=== PATIENT | female | born 1940 | race Caucasian/White ===

== ENCOUNTER 2017-11-19 15:32 | Emergency (ER) | payer MEDICARE, BC, SELFPAY ==
[2017-11-19] VITALS (7 sets, daily range): BP systolic 105–135; BP diastolic 64–90; PULSE 70–112; RESP 13–24; TEMP 36.9; O2SAT 97–100; BMI 21.9
--- NOTE | 2017-11-19 15:55 | ED_ITS ---
HPI - Arrhythmia/Palpitations General Chief Complaint: Arrhythmia/Palpitations Stated Complaint: PALPITATIONS Time Seen by Provider: 11/19/17 15:53 Source: patient Mode of arrival: ambulatory Limitations: no limitations History of Present Illness HPI narrative: Patient is a 77-year-old female here for evaluation of palpitations. Patient states that she woke up this morning with the feeling like her heart was skipping beats and racing. She states she went to sleep last night feeling fine. She does have a history of cervical cancer. Is not currently receiving chemotherapy. Is not currently on blood thinners. Does take metoprolol 25 mg on a daily basis. Has had a history of atrial fibrillation in the past. Last episode was 2 months ago. She states that she went to the ER during this time and she was ?given pills ?and then discharged home afterwards when her heart rate was down. Has not had any symptoms since then. Currently denies any chest pain, lightheadedness, dizziness, shortness of breath, lower extremity swelling. Related Data Home Medications Medication Instructions Recorded Confirmed metoprolol succinate 1 tab PO DAILY 11/19/17 11/19/17 Allergies Allergy/AdvReac Type Severity Reaction Status Date / Time nitroglycerin AdvReac Fainting Verified 11/19/17 16:08 Review of Systems Constitutional Denies fatigue, Denies fever(s), Denies frequent falls and Denies headache(s) ENT Ears, Nose, Mouth, and Throat: Denies dizziness and Denies headache(s) Cardiovascular Denies chest pain, Denies chest pain at rest, Denies syncope, Reports rapid heart rate, Denies pedal edema, Reports irregular heart rhythm, Denies leg edema , Reports palpitations, Denies dyspnea and Denies dyspnea on exertion Respiratory Denies cough, Denies dyspnea and Denies dyspnea on exertion Gastrointestinal Gastrointestinal: Denies diarrhea, Denies nausea and Denies vomiting Genitourinary Denies dysuria Musculoskeletal Denies myalgias and Denies arthralgias Integumentary/Breasts Denies lesions and Denies rash Neurologic Denies behavioral changes, Denies dizziness, Denies syncope, Denies frequent falls and Denies headache(s) Psychiatric Denies behavioral changes Endocrine Denies fatigue and Reports palpitations Hematologic/Lymphatic Reports easy bleeding Allergic/Immunologic Denies urticaria [facility] Medical History Atrial fibrillation (Acute) Cervical cancer (Acute) Surgical History S/P cholecystectomy (Acute) Social History Smoking Status: Never smoker Exam Initial Vital Signs Initial Vital Signs: Vital Signs Temperature 98.4 F 11/19/17 16:01 Pulse Rate 112 H 11/19/17 16:01 Respiratory Rate 20 11/19/17 16:01 Blood Pressure 135/90 H 11/19/17 16:01 Pulse Oximetry 99 11/19/17 16:01 Const General: cooperative, healthy appearing, comfortable, well developed, well groomed and No acute distress Orientation: alert, awake and oriented x3 HENMT Head: normal to inspection and normocephalic Resp Effort & Inspection: normal respiratory effort Auscultation: clear to auscultation bilaterally Cardio Rate: tachycardic Rhythm: abnormal rhythm irregularly irregular Pulses: radial pulses present GI Inspection: non-distended Palpation: soft, No firm and No tender Skin Lesions: no lesions Rashes: no rashes Neuro General: alert, awake and oriented x3 Cognition: normal cognition Speech: speech normal Motor: muscle tone normal throughout Sensory Exam: no sensory deficits noted Extrem General: normal to inspection and capillary refill normal Psych Appearance: grossly normal and well kempt Scores CHADS-VASc Congestive heart failure: no Hypertension: no Age 75 years or older: yes Diabetes mellitus: no Stroke, TIA, or TE: no Vascular disease: no Age 65 to 74 years: no Sex category (female): Female CHADS-VASc Score: 3 Course Orders Ordered: ED Orders 11/19/17 15:55 B Type Natriuretic Peptide Stat Basic Metabolic Panel Stat Complete Blood Count AUTO DIFF Stat Troponin I Stat 11/19/17 15:56 EKG-12 Lead Stat 11/19/17 16:52 EKG-12 Lead Stat Discontinued Medications Diltiazem HCl (Cardizem) 15 mg IV NOW ONE Stop: 11/19/17 16:23 Last Admin: 11/19/17 16:38 Dose: 12.5 mg Metoprolol Tartrate (Lopressor) 25 mg PO NOW ONE Stop: 11/19/17 17:40 Last Admin: 11/19/17 17:52 Dose: 25 mg Vital Signs - 8 hr 11/19/17 16:01 11/19/17 16:38 11/19/17 17:00 Temperature 98.4 F Pulse Rate 112 H 110 H 70 Respiratory Rate 20 13 Blood Pressure 135/90 H 134/81 H Blood Pressure [Right Arm] 107/64 Pulse Oximetry 99 100 11/19/17 18:13 11/19/17 18:40 11/19/17 19:00 Temperature Pulse Rate 79 88 81 Respiratory Rate 19 20 24 Blood Pressure Blood Pressure [Right Arm] 121/69 H 105/66 107/82 H Pulse Oximetry 100 100 97 MDM - Arrhythmia/Palpitations Lab Data Attestation: I reviewed the patient's lab results. ECG Data Attestation: I personally reviewed and interpreted this ECG as follows: Prior ECG tracings: not available for review Interpretation: EKG time 2345 hr AFib Ventricular rate of 121 Normal QRS Normal QTC Nonspecific ST T wave changes EKG timed 5 await p.m. Atrial fibrillation Ventricular rate 82 Normal QRS Normal QTC No ST T wave changes MDM Narrative Medical decision making narrative: Patient refused a chest x-ray here in the emergency department stating that she has been ?radiated ?enough secondary to her history of cervical cancer. She denied chest pain or shortness of breath however was having palpitations. She states she did take her 25 mg of ER metoprolol this morning. She states she normally takes it at 1 o'clock in the afternoon. Her symptoms were present when she woke up this morning. She states she went to sleep last night without any symptoms. She is not currently on anticoagulation. She is a candidate for cardioversion however she declined the offer this. She was given Cardizem here in the emergency department which improved her rate however was still in atrial fibrillation. Her [id number] score is 3 which gives her a 3.2% per year risk of stroke. Offered admission to the hospital secondary to the fact that she is still in atrial fibrillation however she declined this. She is from [place] and is traveling back to [place] tomorrow. We had a long discussion regarding her risk of stroke and also the risk of bleeding from anticoagulation. The patient was very concerned about the risk of bleeding. We did discuss that a stroke could potentially be debilitating. After this long discussion the patient opted not to start anticoagulation. Stable in the emergency department. She was given another 25 mg of metoprolol. She was instructed to start taking 2 of her 25 mg metoprolol tomorrow and when she returns home to contact her medical research tech and her primary care doctor. She was given return precautions. She expressed understanding and agreement with plan. Patient was here in the emergency department for extended period of time secondary to the fact that the lab computer system ? went down ?they were unable to see orders that were ordered. The lab said to be reordered and then hand walked down. It took greater than 1.5 hr for the labs to be resulted. Patient's CBC was unremarkable. BNP was unremarkable. Troponin was negative. Chemistries were unremarkable. Discharge Plan Departure Patient Disposition: Home, Self-Care Clinical Impression: Atrial fibrillation Instructions: DI for Atrial Fibrillation Activity Restrictions/Additional Instructions: You were given diltiazem here in the emergency department which improved your heart rate. You were also given metoprolol. You're still in atrial fibrillation. Recommend that tomorrow you take 50 mg of your metoprolol instead of 25. When you return home call your medical research tech and her primary care doctor for a follow-up. Return to the emergency department sooner for any chest pain, dizziness, lightheadedness, shortness of breath, feeling like your symptoms. heart is racing, or any other concerning symptoms. You did opt not to start anticoagulation secondary to your concern for bleeding. This does put you at approximately 3-4% risk of developing a stroke over the next year. Talk with your medical research tech and your primary care doctor at home regarding this medication Prescriptions: No Action metoprolol succinate 25 mg tablet extended release 24 hr 1 tab PO DAILY RF: 0
--- NOTE | 2017-11-19 16:05 | PC.NURSE ---
Pt states laying down/resting helps with symptoms of the afib. She feels like her heart is going very fast, but this gets better intermittently when resting. It is worse with activity. She states she feels tired, since this has been going on since 0600 today.
[2017-11-19] MEDS: METOPROLOL 25 MG TABLET PO (17:52)
--- NOTE | 2017-11-19 20:07 | PC.NURSE ---
Updated pt that there was a delay in processing lab results due to an issue in the lab department. Provider made aware. Lab orders were sent manually down at approx 1730.
[2017-11-20 16:02] LABS: Add Manual Diff / Slide Review NO; Basophils Percent Auto 0.4 % (0-2); Eosinophils Percent Auto 0.6 % (2-4); Hematocrit 40.6 % (36-46); Hemoglobin 13.7 g/dL (12.0-16.0); Lymphocytes Percent Auto 32.7 % (25-40); Mean Corpuscular HGB Conc 33.9 % (30-36); Mean Corpuscular Hemoglobin 33.3 PG (26-34); Mean Corpuscular Volume 98.5 fL (80-100); Neutrophils Percent Auto 58.3 % (50-75); Platelet Count 243 X10^3/uL (150-400); Red Blood Cell Count 4.12 X10^6/uL (4.0-5.2); Red Cell Distribution Width 13.7 % (11.6-14.8); White Blood Cell Count 4.7 X10^3/uL (4.5-11.0)
[2017-11-20 16:03] LABS: Sodium 140 mmol/L (137-145); Troponin I < 0.012 ng/mL (0.01-0.034)
[2017-11-20 16:04] LABS: BUN Creatinine Ratio 28.3 (6-22); Blood Urea Nitrogen 17 mg/dL (7-17); Calcium 9.8 mg/dL (8.4-10.2); Carbon Dioxide 29 mmol/L (22-32); Chloride 103 mmol/L (98-107); Estimated Glomerular Filt Rate > 60.0 mL/min (>60); Glucose 105 mg/dL (80-110); HEMOLYSIS < 15 (0-50); Potassium 3.9 mmol/L (3.4-5.1)
== END 2017-11-19 20:09 | disposition home or self-care (01) ==
PROVIDERS: Emergency Provider Emergency Medicine
DX: I48.91 Unspecified atrial fibrillation (principal)
CPT/HCPCS: 36591; 80048; 83880; 84484; 85025; 93005; 93010; 96374; 99283; 99284